=== PATIENT | female | born 1945 | race Caucasian/White ===

== ENCOUNTER 2022-03-20 08:28 | Observation (INO) ==
[2022-03-20] MEDS ORDERED: Ondansetron 4 MG/2 ML VIAL IVP PRN ×2 (12:23→12:54)
[2022-03-20] MEDS ORDERED: Naloxone 0.4 MG/ML INJ IVP PRN (12:23)
[2022-03-20] MEDS ORDERED: Melatonin 3 MG TABLET PO PRN (12:23)
[2022-03-20] MEDS ORDERED: *HR* OxyCODONE Immed Rel 5 MG TABLET PO PRN (12:54)
[2022-03-20] MEDS ORDERED: Promethazine 6.25 MG in Water for inj. (sterile) 20 ML IVPB PRN (12:54)
[2022-03-20] MEDS ORDERED: *HR* HYDROmorphone PF 0.5 MG/0.5 ML SYRINGE IVP PRN (12:54)
[2022-03-20] MEDS: 0.9 % Sodium Chloride 1,000 ML IVC SCH (13:20)
[2022-03-20 13:27] LABS: INR 1.1; Prothrombin Time 12.1 Seconds (9.4-12.1)
[2022-03-20 13:34] LABS: Hematocrit 39.8 % (35.3-44.9); Hemoglobin 12.8 g/dL (11.5-15.4); Mean Corpuscular HGB Conc 32.2 g/dL (31.6-35.5); Mean Corpuscular Hemoglobin 27.7 pg (28.0-33.3); Mean Corpuscular Volume 86.1 fL (83.0-100.0); Mean Platelet Volume 10.9 fL (9.4-12.4); Platelet Count 186 K/mcL (140-400); Red Blood Count 4.62 M/mcL (3.82-4.97); Red Cell Distribution Width 15.1 % (11.5-14.5); White Blood Count 6.1 K/mcL (4.3-11.1)
[2022-03-20] MEDS ORDERED: *HR* Succinylcholine 200 MG/10 ML VIAL IVP ONE (13:34)
[2022-03-20] MEDS ORDERED: Ondansetron 4 MG/2 ML VIAL ONE (13:34)
[2022-03-20] MEDS ORDERED: Lidocaine -MPF 2% 2 ML VIAL ONE (13:34)
[2022-03-20] MEDS ORDERED: *HR* FentaNYL (PF) 100 MCG/2 ML VIAL ONE (13:34)
[2022-03-20] MEDS ORDERED: *HR* Propofol 200 MG/20 ML VIAL IVP ONE (13:34)
[2022-03-20] MEDS ORDERED: Lidocaine -MPF 4% 5 ML AMPUL ONE ×2 (13:34→14:18)
[2022-03-20] MEDS ORDERED: EPHEDrine 50 MG/ML VIAL ONE (14:29)
[2022-03-20 14:41] LABS: Alanine Aminotransferase 60 Units/L (7-52); Albumin 3.8 g/dL (3.5-5.7); Albumin/Globulin Ratio 1.4 (1.1-2.2); Alkaline Phosphatase 79 Units/L (34-104); Aspartate Amino Transferase 136 Units/L (13-39); BUN/Creatinine Ratio 15 (6-26); Bilirubin,Total 1.3 mg/dL (0.3-1.0); Blood Urea Nitrogen 13 mg/dL (8-23); Calcium 9.1 mg/dL (8.6-10.3); Carbon Dioxide 23 mEq/L (23-29); Chloride 105 mEq/L (98-107); Globulin 2.7 g/dL (2.4-3.5); Glucose 110 mg/dL (70-105); Osmolality,Calculated 291 (280-300); Potassium 4.1 mEq/L (3.5-5.1); Sodium 140 mEq/L (136-145); Total Protein 6.5 g/dL (6.4-8.9); eGFR For African Americans > 60 (> 60); eGFR For Non-African Americans > 60 (> 60)
[2022-03-20] MEDS ORDERED: Indomethacin 50 MG SUPP.RECT RC ONE (15:16)
[2022-03-20] MEDS: *HR* Labetalol 20 MG/4 ML SYRINGE IVP PRN ×2 (17:55→18:11)
[2022-03-21 05:06] LABS: Hematocrit 37.3 % (35.3-44.9); Hemoglobin 12.5 g/dL (11.5-15.4); Immature Granulocytes % 0.3 % (0-4); Lymphocytes # 0.4 K/mcL (0.6-4.6); Lymphocytes % 7.1 %; Mean Corpuscular HGB Conc 33.5 g/dL (31.6-35.5); Mean Corpuscular Hemoglobin 28.9 pg (28.0-33.3); Mean Corpuscular Volume 86.1 fL (83.0-100.0); Mean Platelet Volume 10.6 fL (9.4-12.4); Monocytes # 0.3 K/mcL (0.0-1.3); Monocytes % 4.7 %; Neutrophils # 5.2 K/mcL (1.6-8.9); Platelet Count 191 K/mcL (140-400); Red Blood Count 4.33 M/mcL (3.82-4.97); Red Cell Distribution Width 14.9 % (11.5-14.5); Segmented Neutrophils % 87.9 %; White Blood Count 5.9 K/mcL (4.3-11.1)
[2022-03-21 05:21] LABS: Alanine Aminotransferase 66 Units/L (7-52); Albumin 3.5 g/dL (3.5-5.7); Albumin/Globulin Ratio 1.5 (1.1-2.2); Alkaline Phosphatase 71 Units/L (34-104); Aspartate Amino Transferase 60 Units/L (13-39); BUN/Creatinine Ratio 20 (6-26); Bilirubin,Total 0.7 mg/dL (0.3-1.0); Blood Urea Nitrogen 18 mg/dL (8-23); Calcium 8.6 mg/dL (8.6-10.3); Carbon Dioxide 25 mEq/L (23-29); Chloride 108 mEq/L (98-107); Globulin 2.3 g/dL (2.4-3.5); Glucose 133 mg/dL (70-105); Osmolality,Calculated 292 (280-300); Potassium 4.4 mEq/L (3.5-5.1); Sodium 139 mEq/L (136-145); Total Protein 5.8 g/dL (6.4-8.9); eGFR For African Americans > 60 (> 60); eGFR For Non-African Americans > 60 (> 60)
[2022-03-21] MEDS: 0.9 % Sodium Chloride 1,000 ML IVC SCH (06:04)
[2022-03-21] MEDS ORDERED: Verapamil ER (24 HR) 240 MG TABLET.ER PO SCH (09:00)
[2022-03-21] MEDS ORDERED: Promethazine 6.25 MG in Water for inj. (sterile) 20 ML IVPB PRN ×2 (13:34→16:44)
[2022-03-21] MEDS ORDERED: Ondansetron 4 MG/2 ML VIAL IVP PRN ×3 (13:34→16:44)
[2022-03-21] MEDS ORDERED: *HR* OxyCODONE Immed Rel 5 MG TABLET PO PRN ×2 (13:34→16:44)
[2022-03-21] MEDS ORDERED: *HR* HYDROmorphone PF 0.5 MG/0.5 ML SYRINGE IVP PRN ×2 (13:53→16:44)
[2022-03-21] MEDS ORDERED: Lidocaine HCL 4 ML Topical Solution (Laryng-O-Jet Kit Sterile Pak) TP ONE (14:34)
[2022-03-21] MEDS ORDERED: Ondansetron 4 MG/2 ML VIAL ONE (14:34)
[2022-03-21] MEDS ORDERED: *HR* FentaNYL (PF) 100 MCG/2 ML VIAL ONE (14:34)
[2022-03-21] MEDS ORDERED: *HR* Propofol 200 MG/20 ML VIAL IVP ONE (14:34)
[2022-03-21] MEDS ORDERED: *HR* Midazolam HCl 2 MG/2 ML VIAL ONE (14:34)
[2022-03-21] MEDS ORDERED: *HR* Rocuronium Bromide 50 MG/5 ML VIAL ONE (14:35)
[2022-03-21] MEDS ORDERED: Lidocaine -MPF 2% 2 ML VIAL ONE (14:35)
[2022-03-21] MEDS ORDERED: Sugammadex Sodium 200 MG/2 ML VIAL IV ONE (15:37)
[2022-03-21] MEDS ORDERED: Piperacillin/Tazobactam 3.375 GM in 0.9 % Sodium Chloride Mini Bag 100 ML IVPB SCH (16:30)
[2022-03-21] MEDS ORDERED: Melatonin 3 MG TABLET PO PRN (16:44)
[2022-03-21] MEDS ORDERED: Naloxone 0.4 MG/ML INJ IVP PRN (16:44)
[2022-03-21] MEDS ORDERED: *HR* Labetalol 20 MG/4 ML SYRINGE IVP PRN (16:44)
[2022-03-21] MEDS: Piperacillin/Tazobactam 3.375 GM in 0.9 % Sodium Chloride Mini Bag 100 ML IVPB SCH (23:26)
[2022-03-22 03:52] LABS: Basophils % 0.1 %; Hemoglobin 11.5 g/dL (11.5-15.4); Immature Granulocytes % 0.5 % (0-4); Lymphocytes # 0.2 K/mcL (0.6-4.6); Mean Corpuscular HGB Conc 32.9 g/dL (31.6-35.5); Mean Corpuscular Hemoglobin 27.8 pg (28.0-33.3); Mean Corpuscular Volume 84.5 fL (83.0-100.0); Mean Platelet Volume 11.1 fL (9.4-12.4); Monocytes # 0.3 K/mcL (0.0-1.3); Monocytes % 2.7 %; Neutrophils # 11.4 K/mcL (1.6-8.9); Platelet Count 159 K/mcL (140-400); Red Blood Count 4.14 M/mcL (3.82-4.97); Red Cell Distribution Width 15.1 % (11.5-14.5); Segmented Neutrophils % 94.7 %
[2022-03-22 03:58] LABS: Alanine Aminotransferase 36 Units/L (7-52); Albumin 3.1 g/dL (3.5-5.7); Albumin/Globulin Ratio 1.2 (1.1-2.2); Alkaline Phosphatase 50 Units/L (34-104); Aspartate Amino Transferase 26 Units/L (13-39); BUN/Creatinine Ratio 18 (6-26); Bilirubin,Total 0.6 mg/dL (0.3-1.0); Blood Urea Nitrogen 15 mg/dL (8-23); Calcium 8.3 mg/dL (8.6-10.3); Carbon Dioxide 23 mEq/L (23-29); Chloride 109 mEq/L (98-107); Globulin 2.5 g/dL (2.4-3.5); Glucose 144 mg/dL (70-105); Osmolality,Calculated 287 (280-300); Potassium 4.2 mEq/L (3.5-5.1); Sodium 137 mEq/L (136-145); Total Protein 5.6 g/dL (6.4-8.9); eGFR For African Americans > 60 (> 60); eGFR For Non-African Americans > 60 (> 60)
[2022-03-22 06:58] VITALS: BP 183/79; PULSE 69; TEMP 98.7; O2SAT 94
[2022-03-22] MEDS: Piperacillin/Tazobactam 3.375 GM in 0.9 % Sodium Chloride Mini Bag 100 ML IVPB SCH (08:05)
[2022-03-22] MEDS ORDERED: Verapamil ER (24 HR) 240 MG TABLET.ER PO SCH (09:00)
== END 2022-03-22 10:51 | disposition home or self-care (01) ==
LOC: 3BNU → SUATTDRO 10:41
PROVIDERS: ADMIT Internal Medicine; ATTEND Registered Nurse